=== PATIENT | male | born 1970 | race Caucasian/White ===

== ENCOUNTER 2021-01-24 14:15 | Emergency (ER) | payer BC ==
[2021-01-24] MEDS ORDERED: Ondansetron 4 MG/2 ML SDV IVPUSH ONE (14:58)
[2021-01-24] MEDS ORDERED: Sodium Chloride 0.9% 1,000 ML IV ONE ×2 (14:58→16:25)
--- NOTE | 2021-01-24 14:59 | EDM.PDOC ---
ED HPI GENERAL MEDICAL PROBLEM - General Chief Complaint: General Stated Complaint: WEAK\DIAHREA Time Seen by Provider: 01/24/21 14:37 Source of Information: Reports: Patient History Limitations: Reports: No Limitations - History of Present Illness INITIAL COMMENTS - FREE TEXT/NARRATIVE: 50-year-old male presents the emergency department today with complaints of weakness and diarrhea stools. Patient states he does have a history of ulcerative colitis currently not taking any prescription medications. He states for the past 3 weeks he is been feeling weak and had diarrhea stools with occasional blood noted in the stool. Also complains of hemorrhoids. He states he has had 30 bowel movements today already. He states he has been nauseated but has not had any vomiting. He has been consuming a bland soft diet as he states his hemorrhoids have been so painful. He denies any fever or chills. He denies any urinary symptoms. Patient states that his GI specialist is Dr. Rinaldi. States he has also been treated at [facility] in the past. - Related Data Allergies Allergy/AdvReac Type Severity Reaction Status Date / Time No Known Allergies Allergy Verified 10/04/18 11:19 Home Meds: Home Meds Loperamide [Imodium] 4 mg PO Q6H PRN #0 cap 10/05/18 [Rx] Past Medical History Gastrointestinal History: Reports: Chronic Diarrhea, Hemorrhoids, Inflammatory Bowel Disease Other Gastrointestinal History: Crohn's disease - Infectious Disease History Infectious Disease History: Reports: None Social & Family History - Family History Family Medical History: No Pertinent Family History - Tobacco Use Tobacco Use Status *Q: Never Tobacco User - Caffeine Use Caffeine Use: Reports: Coffee - Recreational Drug Use Recreational Drug Use: No Other Recreational Drug Type: marijuana gummiies for sleep ED ROS GENERAL - Review of Systems Review Of Systems: Comprehensive ROS is negative, except as noted in HPI. ED EXAM, GENERAL - Physical Exam Exam: See Below Exam Limited By: No Limitations General Appearance: Alert, WD/WN, No Apparent Distress Ears: Normal External Exam, Hearing Grossly Normal Nose: Normal Inspection Throat/Mouth: Normal Inspection, Normal Lips, Normal Voice, No Airway Compromise Head: Atraumatic, Normocephalic Neck: Normal Inspection, Supple Respiratory/Chest: No Respiratory Distress, Lungs Clear, Normal Breath Sounds, No Accessory Muscle Use, Chest Non-Tender Cardiovascular: Normal Peripheral Pulses, Regular Rate, Rhythm, No Edema, No Murmur Peripheral Pulses: 2+: Radial (L), Radial (R) GI/Abdominal: Normal Bowel Sounds, Soft, Non-Tender, No Distention (Male) Exam: Deferred Rectal (Males) Exam: Deferred Back Exam: Normal Inspection Extremities: Normal Inspection Neurological: Alert, Oriented, Normal Cognition Psychiatric: Normal Affect, Normal Mood Skin Exam: Warm, Dry, Intact, No Rash, Pallor Lymphatic: No Adenopathy Course - Vital Signs Text/Narrative:: As stated above, patient presents with a history of ulcerative colitis with flareup over the course the past 3 weeks. Patient at the time of my exam has a blood pressure 100/65 and a heart rate of 96. He has very pale in color. Physical exam is essentially unremarkable otherwise. We will have nursing staff obtain orthostatic vital signs. We will also have them place a saline lock and will give him a liter of normal saline wide open as he is likely dehydrated. Also give him Zofran for the nausea. Will obtain lab studies to include a CBC, CMP, magnesium, and a C-reactive protein. Last Recorded V/S: Last Vital Signs Temp 96.6 F L 01/24/21 14:46 Pulse 96 01/24/21 14:46 Resp 20 01/24/21 14:46 BP 100/65 01/24/21 14:46 Pulse Ox 98 01/24/21 14:46 Orthostatic Blood Pressure [ 79/57 Standing] Orthostatic Blood Pressure [ 88/71 Supine] - Orders/Labs/Meds Orders: Active Orders 24 hr Category Date Time Status Orthostatic Vital Signs [RC] ASDIRECTED Care 01/24/21 14:58 Active STOOL CULTURE/SHIGA TOXIN [MREF] Stat Lab 01/24/21 18:47 Received Sodium Chloride 0.9% [Normal Saline] 1,000 ml Med 01/24/21 18:45 Active IV ASDIRECTED Medication Orders Sodium Chloride (Normal Saline) 1,000 mls @ 250 mls/hr IV ASDIRECTED TYRA Last Admin: 01/24/21 18:42 Dose: 250 mls/hr Documented by: MIGUELITO Labs: Laboratory Tests 01/24/21 01/24/21 01/24/21 Range/Units 14:48 14:55 14:55 WBC 10.63 H (4.23-9.07) K/mm3 RBC 4.04 L (4.63-6.08) M/mm3 Hgb 10.4 L D (13.7-17.5) gm/dl Hct 32.7 L (40.1-51.0) % MCV 80.9 D (79.0-92.2) fl MCH 25.7 (25.7-32.2) pg MCHC 31.8 L (32.2-35.5) g/dl RDW Std Deviation 40.1 (35.1-43.9) fL Plt Count 874 H* D (163-337) K/mm3 MPV 7.5 L (9.4-12.3) fl Neut % (Auto) 82.8 H (34.0-67.9) % Lymph % (Auto) 7.5 L (21.8-53.1) % Dougherty % (Auto) 7.4 (5.3-12.2) % Eos % (Auto) 1.3 (0.8-7.0) Baso % (Auto) 0.2 (0.1-1.2) % Neut # (Auto) 8.79 H (1.78-5.38) K/mm3 Lymph # (Auto) 0.80 L (1.32-3.57) K/mm3 Dougherty # (Auto) 0.79 (0.30-0.82) K/mm3 Eos # (Auto) 0.14 (0.04-0.54) K/mm3 Baso # (Auto) 0.02 (0.01-0.08) K/mm3 Manual Slide Review Abnormal smear Sodium 125 L (136-145) mEq/L Potassium 3.9 (3.5-5.1) mEq/L Chloride 89 L D (98-107) mEq/L Carbon Dioxide 28 (21-32) mEq/L Anion Gap 11.9 (5-15) BUN 17 (7-18) mg/dL Creatinine 1.9 H (0.7-1.3) mg/dL Est Cr Clr Drug Dosing 45.42 mL/min Estimated GFR (MDRD) 38 (>60) mL/min BUN/Creatinine Ratio 8.9 L (14-18) Glucose 107 H (70-99) mg/dL Lactic Acid (0.4-2.0) mmol/L Calcium 8.5 (8.5-10.1) mg/dL Magnesium 2.1 (1.8-2.4) mg/dL Total Bilirubin 0.6 (0.2-1.0) mg/dL AST 32 (15-37) U/L ALT 21 (16-63) U/L Alkaline Phosphatase 102 (46-116) U/L C-Reactive Protein 10.1 H* (<1.0) mg/dL Total Protein 7.3 (6.4-8.2) g/dl Albumin 2.4 L (3.4-5.0) g/dl Globulin 4.9 gm/dL Albumin/Globulin Ratio 0.5 L (1-2) C.difficile [id number]-[id number] C. difficile Tox (PCR) Influenza Type A RNA Negative (NEGATIVE) Influenza Type B RNA Negative (NEGATIVE) SARS-CoV-2 RNA (DEBBIE) Negative (NEGATIVE) 01/24/21 01/24/21 Range/Units 16:22 18:47 WBC (4.23-9.07) K/mm3 RBC (4.63-6.08) M/mm3 Hgb (13.7-17.5) gm/dl Hct (40.1-51.0) % MCV (79.0-92.2) fl MCH (25.7-32.2) pg MCHC (32.2-35.5) g/dl RDW Std Deviation (35.1-43.9) fL Plt Count (163-337) K/mm3 MPV (9.4-12.3) fl Neut % (Auto) (34.0-67.9) % Lymph % (Auto) (21.8-53.1) % Dougherty % (Auto) (5.3-12.2) % Eos % (Auto) (0.8-7.0) Baso % (Auto) (0.1-1.2) % Neut # (Auto) (1.78-5.38) K/mm3 Lymph # (Auto) (1.32-3.57) K/mm3 Dougherty # (Auto) (0.30-0.82) K/mm3 Eos # (Auto) (0.04-0.54) K/mm3 Baso # (Auto) (0.01-0.08) K/mm3 Manual Slide Review Sodium (136-145) mEq/L Potassium (3.5-5.1) mEq/L Chloride (98-107) mEq/L Carbon Dioxide (21-32) mEq/L Anion Gap (5-15) BUN (7-18) mg/dL Creatinine (0.7-1.3) mg/dL Est Cr Clr Drug Dosing mL/min Estimated GFR (MDRD) (>60) mL/min BUN/Creatinine Ratio (14-18) Glucose (70-99) mg/dL Lactic Acid 2.1 H* (0.4-2.0) mmol/L Calcium (8.5-10.1) mg/dL Magnesium (1.8-2.4) mg/dL Total Bilirubin (0.2-1.0) mg/dL AST (15-37) U/L ALT (16-63) U/L Alkaline Phosphatase (46-116) U/L C-Reactive Protein (<1.0) mg/dL Total Protein (6.4-8.2) g/dl Albumin (3.4-5.0) g/dl Globulin gm/dL Albumin/Globulin Ratio (1-2) C.difficile [id number] Presumptive negative C. difficile Tox (PCR) Negative Influenza Type A RNA (NEGATIVE) Influenza Type B RNA (NEGATIVE) SARS-CoV-2 RNA (DEBBIE) (NEGATIVE) Meds: Medications Generic Name Dose Route Start Last Admin Trade Name Freq PRN Reason Stop Dose Admin Sodium Chloride 1,000 mls @ 250 mls/hr 01/24/21 18:45 01/24/21 18:42 Normal Saline IV 250 mls/hr ASDIRECTED TYRA Administration Discontinued Medications Generic Name Dose Route Start Last Admin Trade Name Freq PRN Reason Stop Dose Admin Sodium Chloride 1,000 mls @ 999 mls/hr 01/24/21 14:58 01/24/21 15:20 Normal Saline IV 01/24/21 15:58 999 mls/hr ONETIME ONE Administration Sodium Chloride 1,000 mls @ 999 mls/hr 01/24/21 16:25 01/24/21 16:27 Normal Saline IV 01/24/21 17:25 999 mls/hr ONETIME ONE Administration Ondansetron HCl 4 mg 01/24/21 14:58 01/24/21 15:20 Ondansetron 4 Mg/2 Ml Sdv IVPUSH 01/24/21 14:59 4 mg ONETIME ONE Administration - Re-Assessments/Exams Free Text/Narrative Re-Assessment/Exam: 01/24/21 15:50 Hematology reveals a WBC of 10.63, hemoglobin 10.4, hematocrit 32.7, platelet count 874 Chemistry reveals a sodium of 125, potassium 3.9, chloride 89, anion gap 11.9, BUN 17, creatinine 1.9, GFR 38, glucose 107, magnesium 2.1, C-reactive protein 10.1, total protein 7.3, albumin 2.4 Patient is influenza a and B- as well as Covid negative I do feel this patient needs to be admitted to the hospital for management of his ulcerative colitis. I have spoken to our on-call surgeon, Dr. Bai and she states that she does not manage ulcerative colitis patients. I have phoned [facility] in [place] as the patient's GI specialist is located there. They state they will call me back as they were trying to locate a bed. 01/24/21 16:16 I spoke with the hospitalist at [facility] in [place], Dr. Hammond, and he states he will accept the patient in transport however he requests that I draw a lactic acid level on the patient and continue giving him IV fluids and call him in 1 hour with report. 01/24/21 17:31 Lactic acid level is 2.1. Blood pressure 101/60 1:01 liter of IV fluids. , called with these results and he has accepted transfer of this patient. He states he would like a call just prior to the patient departure from the hospital with a blood pressure. Departure - Departure Time of Disposition: 20:56 Disposition: DC/Tfer to Acute Hospital 02 Condition: Good Clinical Impression: Hyponatremia Ulcerative colitis Qualifiers: Ulcerative colitis location: unspecified ulcerative colitis location Digestive disease complication type: with rectal bleeding Qualified Code(s): K51.911 - Ulcerative colitis, unspecified with rectal bleeding - Discharge Information Referrals: Ken Winkler MD [Primary Care Provider] - Forms: ED Department Discharge Sepsis Event Note (ED) - Focused Exam Vital Signs: Vital Signs Temp Pulse Resp BP Pulse Ox 01/24/21 14:46 96.6 F L 96 20 100/65 98 - My Orders Last 24 Hours: My Active Orders 01/24/21 14:58 Orthostatic Vital Signs [RC] ASDIRECTED 01/24/21 18:45 Sodium Chloride 0.9% [Normal Saline] 1,000 ml IV ASDIRECTED 01/24/21 18:47 STOOL CULTURE/SHIGA TOXIN [MREF] Stat - Assessment/Plan Last 24 Hours: My Active Orders 01/24/21 14:58 Orthostatic Vital Signs [RC] ASDIRECTED 01/24/21 18:45 Sodium Chloride 0.9% [Normal Saline] 1,000 ml IV ASDIRECTED 01/24/21 18:47 STOOL CULTURE/SHIGA TOXIN [MREF] Stat
[2021-01-24 15:31] LABS: CORONAVIRUS COVID-19 NAA NEGATIVE (NEGATIVE)
[2021-01-24] MEDS ORDERED: Sodium Chloride 0.9% 1,000 ML IV SCH (18:45)
== END 2021-01-24 21:05 ==
LOC: JD.ED 14:15
DX: E87.1 Hypo-osmolality and hyponatremia (principal); K51.911 Ulcerative colitis, unspecified with rectal bleeding; Z20.822 Contact with and (suspected) exposure to COVID-19
CPT/HCPCS: 0240U; 36415; 80053; 83605; 83735; 85025; 86140; 87045; 87046; 87493; 87899; 96374; 99285; J2405; J7030